=== PATIENT | female | born 2000 | race Caucasian/White ===

== ENCOUNTER 2024-04-15 20:36 | Emergency (ER) | payer SELFPAY ==
[~2024-04-15] VITALS: Ht 167.6 cm; Wt 68.0 kg
[2024-04-15 21:28] VITALS: O2SAT 100
[2024-04-16] LABS: CHLORIDE 106 mEq/L (98-107); POTASSIUM 3.7 mEq/L (3.5-5.1); SODIUM 139 mEq/L (136-145)
[2024-04-16 00:01] LABS: CARBON DIOXIDE 26 mEq/L (21-32)
[2024-04-16 00:02] LABS: BASOPHILS % 0.2 % (0.0-2.0); EOSINOPHILS % 0.2 % (0.0-5.0); HEMOGLOBIN. 12.8 g/dL (12.0-16.0); LYMPHOCYTES % 24.2 % (20.0-50.0); MEAN CORPUSCULAR HEMOGLOBIN 30.6 pg (28.0-32.0); MEAN CORPUSCULAR HGB CONC 33.8 g/dL (31.0-37.0); MEAN CORPUSCULAR VOLUME 90.7 fL (81.0-99.0); MEAN PLATELET VOLUME 6.6 fl (7.4-10.4); MONOCYTES % 7.9 % (2.0-8.0); NEUTROPHILS % 67.5 % (40.0-76.0); PLATELET 413 x1000/uL (130-400); RED BLOOD CELL COUNT 4.19 mill/uL (4.2-5.4); RED CELL DISTRIBUTION WIDTH 13.7 % (11.6-14.6); WHITE BLOOD COUNT 12.5 x1000/uL (4.5-11.0)
[2024-04-16 00:06] LABS: CREATININE 0.7 mg/dL (0.6-1.0); GLUCOSE 83 mg/dL (70-105); UREA NITROGEN BLOOD 9 mg/dL (9-23)
[2024-04-16 00:08] LABS: HCG SCREEN NEGATIVE
[2024-04-16 00:12] LABS: TROPONIN I HIGH SENSITIVITY < 4 ng/L (3.0-34)
[2024-04-16 01:20] VITALS: BP 99/62; PULSE 79; RESP 14; TEMP 36.72516; O2SAT 100
[2024-04-16] MEDS: LORAZEPAM 0.5MG TABLET PO ONE (01:24)
== END 2024-04-16 01:30 | disposition home or self-care (01) ==
LOC: ER 20:36
DX: F41.9 Anxiety disorder, unspecified (principal); R07.9 Chest pain, unspecified
CPT/HCPCS: 36415; 71045; 80048; 84484; 84703; 85025; 85379; 93005; 99285